=== PATIENT | female | born 1940 | race Caucasian/White ===

== ENCOUNTER → 2023-06-03 14:46 | Outpatient (REF) | payer MEDICARE, SELFPAY | LOC: HWRAD 14:46 | PROVIDERS: ATTENDING PHYSICIAN Physician Assistant; FAMILY PHYSICIAN Internal Medicine | DX: E04.2 Nontoxic multinodular goiter (principal) | CPT/HCPCS: 76536 ==

== ENCOUNTER → 2023-06-23 13:20 | Outpatient (REF) | payer MEDICARE, SELFPAY | LOC: PAVMRI 13:20 | PROVIDERS: ATTENDING PHYSICIAN Psychiatry & Neurology Neurology; FAMILY PHYSICIAN Internal Medicine | DX: E85.4 Organ-limited amyloidosis (principal); I68.0 Cerebral amyloid angiopathy | CPT/HCPCS: 70553; A9575 ==

== ENCOUNTER → 2023-07-08 13:35 | Outpatient (REF) | payer MEDICARE, SELFPAY ==
[2023-07-08 16:04] LABS: % Basophils 0.6 % (0-2); % Eosinophils 0.9 % (0-6); % Immature Granulocytes 2.1 % (0-0.5); % Lymphocytes 9.7 % (20.5-51.1); % Neutrophils 77.7 % (42.2-75.2); Absolute Basophils 0.1 10^3/uL (0-0.2); Absolute Eosinophils 0.1 10^3/uL (0-0.7); Absolute Immature Granulocytes 0.3 10^3/uL (0-0.05); Absolute Lymphocytes 1.1 10^3/uL (1.2-3.4); Absolute Monocytes 1.1 10^3/uL (0.1-0.6); Absolute Neutrophils 9.1 10^3/uL (1.4-6.5); Hematocrit 41.6 % (37.0-47.0); Hemoglobin 12.8 g/dL (12.0-16.0); Mean Corp Hgb Conc. 30.8 g/dL (33.0-37.0); Mean Platelet Volume 9.9 fL (7.4-10.4); Nucleated Red Blood Cells % 0 %; Platelet Count 267 10^3/uL (130-400); Red Blood Cell Count 4.57 10^6/uL (4.20-5.40); Red Cell Dist. Width 17.1 % (11.5-14.5); White Blood Cell Count 11.8 10^3/uL (4.8-10.8)
[2023-07-08 16:25] LABS: ALT (SGPT) 21 U/L (0-35); AST (SGOT) 22 U/L (14-36); Albumin 4.2 g/dl (3.5-5.0); Alkaline Phosphatase 53 U/L (38-126); Blood Urea Nitrogen 30 mg/dl (7-17); Calcium 9.5 mg/dl (8.4-10.2); Carbon Dioxide 34 mmol/L (22-30); Chloride 99 mmol/L (98-107); Glucose 78 mg/dl (70-99); Iron 90 ug/dl (37-170); Magnesium 2.3 mg/dl (1.6-2.3); Potassium 4.4 mmol/L (3.5-5.1); Sodium 136 mmol/L (135-145); Total Bilirubin 0.6 mg/dl (0.2-1.3); eGFR > 60.00
[2023-07-08 17:00] LABS: Ferritin 60.1 ng/ml (11.1-264.0)
[2023-07-11 11:50] LABS: Transferrin 279 mg/dL (200-360)
== END ==
LOC: HWLAB 13:35
PROVIDERS: ATTENDING PHYSICIAN Internal Medicine; FAMILY PHYSICIAN Internal Medicine
DX: Z51.5 Encounter for palliative care (principal); J44.9 Chronic obstructive pulmonary disease, unspecified; E43 Unspecified severe protein-calorie malnutrition
CPT/HCPCS: 36415; 80053; 82728; 83540; 83735; 84466; 85025

== ENCOUNTER → 2023-07-16 12:35 | Outpatient (REF) | payer MEDICARE, SELFPAY | LOC: HWRAD 12:35 | PROVIDERS: ATTENDING PHYSICIAN Internal Medicine; FAMILY PHYSICIAN Internal Medicine | DX: C34.90 Malignant neoplasm of unspecified part of unspecified bronchus or lung (principal) | CPT/HCPCS: 71260; Q9967 ==

== ENCOUNTER 2023-07-26 21:06 | Emergency (ER) | payer MEDICARE, SELFPAY ==
[2023-07-26 21:08] VITALS: BP 145/78; BMI 18.9
--- NOTE | 2023-07-26 21:26 | EDRN ---
Pt says she slipped and fell backwards hitting the back of her head on cement ground around 8584-2091. No loc, n/v, dizziness, visual disturbance. Pt has a posterior headache that has improved. Pt is not on blood thinners. Pt concerned about
internal brain bleeding. Pt came out of room to nurse's station after getting changed into gown - gait steady, no weakness.
[2023-07-26 22:29] VITALS: BP 116/64
--- NOTE | 2023-07-26 22:34 | ED.GENMED ---
History of Present Illness
General
Chief Complaint: Head Injury
Source: patient and family
Exam Limitations: none
Time Seen by Provider: 07/26/23 21:28
Nursing documentation reviewed up to this point in time: agreed with
Travel History
Have you had any contact with someone who has COVID-19?: No
Do you have any symptoms of coronavirus? Fever > 100 degrees, chills, cough, shortness of breath, sore throat, loss of taste or smell, muscle aches, or headache?: No
History of Present Illness
History of Present Illness:
83-year-old female presents with slip and fall. She was getting out of the car and slipped on the concrete striking her head. Denies loss of consciousness. She is not on any blood thinners. Patient states that she just wanted to come in to get
checked out. She has a very mild headache. Denies blurry vision. Denies nausea or vomiting. Patient was able to ambulate at the scene.
Past History
Past History
ED Past Medical History: Valvular disease, Hypothyroidism and Other (Irritable bowel syndrome, rapid heart rate)
ED Past Surgical History: Appendectomy, Tonsilectomy and Other (Bilateral lumpectomy, for benign masses)
Social History
Tobacco: Former smoker
Alcohol: None
Drug: None
Personal:
Living: with family
Employment: Retired
Review of Systems
Review of Systems
Allergies reviewed?: Yes
All Other Systems: ROS reviewed and negative except as documented in HPI and ROS
Constitutional: Reports no symptoms
EENT: Reports no symptoms
Respiratory: Reports no symptoms
Cardiac: Reports no symptoms
ABD/GI: Reports no symptoms
: Reports no symptoms
Musculoskeletal: Reports no symptoms
Skin: Reports no symptoms
Neurological: Reports headache
Endocrine: Reports no symptoms
Hematologic/Lymphatic: Reports no symptoms
Psychiatric: Reports no symptoms
Phy Exam
General Physical Exam
General Presentation: well appearing and no apparent distress
General Skin: warm and dry
General Habitus: normal
General Mental: alert
General Hydration: appears well hydrated
Cardiovascular Exam
Cardiovascular Exam: regular rate/rhythm
Pulmonary Exam
Pulmonary Exam: lungs clear and no respiratory distress
Gastrointestinal Exam
Gastrointestinal Exam: normal bowel sounds and non tender
Neurological Exam
Neurological Exam: alert and oriented x3
Musculoskeletal Exam
Musculoskeletal Exam: full ROM and neck pain
Skin Exam
Skin Exam: normal color and warm/dry
Psychiatric Exam
Psychiatric Exam: normal mood/affect
Course
Orders/Labs/Results
Orders:
Orders
07/26/23 21:10
CT Head W/o Iv Contrast Urgent
Reason For Exam: pain
Cervical Spine wo Contrast CT [CT Cervical Spine W/o Iv Contr] Urgent
Comment:
Reason For Exam: pain
Vital Signs
Initial and Last Documented VS:
Initial Vital Signs
Temp Pulse Resp BP Pulse Ox
98 F 95 16 145/78 99
07/26/23 21:08 07/26/23 21:08 07/26/23 21:08 07/26/23 21:08 07/26/23 21:08
Last Documented Vital Signs
Temp Pulse Resp BP Pulse Ox
98 F 95 14 116/64 95
07/26/23 21:08 07/26/23 22:29 07/26/23 22:29 07/26/23 22:29 07/26/23 22:29
*Radiology
Radiology exam reviewed: radiology read reviewed
*Pulse Oximetry
Patient hypoxic: no
*Critical Care Note
Total Time (30-74mins, 75-104mins- exclusive of procedures): Not Applicable
Update Note
Update Note:
CT head, C-spine
IMPRESSION:
Head:
No acute intracranial findings.
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
contrast-enhanced MRI is recommended to exclude underlying malignancy with associated vasogenic edema.
Mild disproportionate ventricular enlargement, new since 07/30/2021, and which may represent normal pressure hydrocephalus in the appropriate clinical setting.
Additional findings: Senescent changes. Vascular calcifications.
C-spine:
No acute fracture or dislocation.
5 mm dural based calcified lesion within the ventral cervical spine, centered at the C2 level (304: 45), suspicious for a meningioma. Contrast-enhanced MRI is recommended for further characterization.
Asymmetric enlargement of the left thyroid lobe, with nodules. Ultrasound is recommended for further characterization.
Additional findings: DJD. Vascular calcifications.
ED Attending Note
-
Portions of this chart may have been created with voice recognition software.� Occasional wrong word or��sound alike� substitutions may have occurred due to the inherent limitations of voice recognition software.
Discharge Plan
Departure
Patient Disposition: Home (Routine Discharge)
Date of Disposition: 07/26/23
Time of Disposition: 22:37
Patient with high blood pressure during this ER visit?: No
Discharge Problem:
Head injury, Headache
Instructions: Head Injury in Adults (DC), Minor Head Injury (DC)
Prescriptions:
No Action
riboflavin (vitamin B2) 100 mg Tablet
100 mg PO DAILY
prochlorperazine maleate 5 mg tablet
5 mg PO Q8H PRN (Reason: nausea/vomiting)
triamcinolone acetonide 0.1 % Cream
1 applic TOPICAL Q6H PRN (Reason: itch)
omeprazole 20 mg Capsule,Delayed Release(Dr/Ec)
20 mg PO DAILY
magnesium 250 mg Tablet
250 mg PO DAILY
ondansetron 4 mg Tablet,Disintegrating
4 mg PO Q8H PRN (Reason: nausea)
fluticasone propionate 50 mcg/actuation [place],Suspension
1 spray INTRANASAL BID
escitalopram oxalate 10 mg tablet
10 mg PO DAILY
arformoterol 15 mcg/2 mL Solution For Nebulization
2 ml INHALATION R BID
Zyrtec 10 mg Capsule
10 mg PO DAILY
PreserVision AREDS-2 250-90-40-1 mg Capsule
1 tab PO BID
Caltrate 600 plus D 600 mg-20 mcg (800 unit) Tablet,Chewable
1 tab PO DAILY
umeclidinium-vilanterol 62.5-25 mcg/actuation Blister With Device
1 inh INHALATION R DAILY
naloxone 4 mg/actuation [place],Non-Aerosol
4 mg INTRANASAL Q3M PRN (Reason: opioid overdose)
revefenacin 175 mcg/3 mL Solution For Nebulization
175 mcg INHALATION R DAILY
midodrine 5 mg Tablet
10 mg PO TID@0800,1300,1800 Qty: 90 0RF
metronidazole 500 mg Tablet
500 mg PO Q8 Qty: 96 0RF
gabapentin 100 mg Capsule
100 mg PO BID Qty: 60 0RF
ceftriaxone 2 gram Recon Soln
2,000 mg IV Q24H Qty: 0 0RF
metoprolol tartrate 25 mg Tablet
12.5 mg PO BID Qty: 60 0RF
acetaminophen 325 mg Tablet
650 mg PO Q4HPRN PRN (Reason: mild pain/BARNETT/temp> 100.4F) Qty: 0 0RF
ipratropium-albuterol 0.5 mg-3 mg(2.5 mg base)/3 mL Solution For Nebulization
3 ml inhalation R Q4HPRN PRN (Reason: shortness of breath) Qty: 180 0RF
Lactobac/Bifidobac [Visbiome]
1 cap PO DAILY Qty: 30 0RF
albuterol sulfate 2.5 mg /3 mL (0.083 %) Solution For Nebulization
2.5 mg INHALATION R BID Qty: 180 0RF
Rx Instructions:
to be used with 3% saline for sputum clearance
oxycodone 5 mg Tablet
5 mg PO Q4H PRN (Reason: cancer related pain) Qty: 20 0RF
sodium chloride 3 % Solution For Nebulization
4 ml INHALATION R BID Qty: 240 0RF
Referrals:
Jud Franklni-MD Diana [Family Provider] -
Activity Restrictions/Additional Instructions:
It was a pleasure meeting you and taking part in your care. We hope for your continued healing and wellness.
Please read discharge instructions in their entirety. However, they are for general education and may not describe your exact diagnosis at discharge. Information on your ER visit and medical conditions were discussed with you along with appropriate
follow up information...
If indicated, please take your medications as instructed and indicated on discharge paperwork.
Please schedule a follow up appointment as directed. Call to schedule an appointment
Please return to the emergency department with ANY change in, persisting, or worsening of symptoms. If any of your symptoms do not improve, or persist, or become more severe within 6-12 hours, please return to the emergency department for further
care.
Please return to the emergency department if you develop a headache, neck pain/stiffness, fever greater than 100.4F, chest pain, shortness of breath, persistent nausea, vomiting, slurred speech, difficulty walking, numbness/tingling, weakness, signs
of infection or any other symptoms that are worrisome to you.
If you have any questions or concerns please do not hesitate to call the Hospital at or E-mail me directly at [email or web address]
Interventions
Interventions:
*Risk Screen - Suicide Last Done: 07/26/23 21:17
*General Assessment Last Done: 07/26/23 21:17
*Neglect/Abuse Screening Last Done: 07/26/23 21:17
ED- Fall Risk Assessment Last Done: 07/26/23 21:25
*ED COVID-19 Vaccine History Last Done: 07/26/23 21:08
ED- Neurological Assessment Last Done: 07/26/23 21:25
ED-Skin Assessment Last Done: 07/26/23 21:25
Discharge Date and Time
Print Language: ROMANIAN
--- NOTE | 2023-08-04 12:22 | OID.L.PAT ---
Pulmonary Nodule Pat Letter
- -
08/04/23
HA LEYVA
[address]
[place], [place] [address]
Deaedilson BONNER,
A pulmonary nodule was seen on an imaging study done by [facility]iology. This was reviewed by the [facility] Pulmonary Nodule Advisory Board and the following recommendation was made:
Recommendation: follow up with Oncology
If you have any questions, please do not hesitate to contact your primary care physician. If you are in need of a Physician, you can go to [email or web address] and click on 'Find a Provider'. Type 'Family Medicine' in the search.
Oncology Nurse Navigator
[facility]
[phone]
Certified Mail Return Receipt
--- NOTE | 2023-08-04 12:23 | OID.L.REC ---
Pulmonary Nodule Follow Up
- Recommendation
08/04/23
Pulmonary Nodule Review Recommendations
Your patient, HA LEYVA, had a pulmonary nodule seen on an imaging study done 07/26/2023 in the [facility] Emergency Room.
This was reviewed by the [facility] Pulmonary Nodule Advisory Board and the following recommendation was made:
Recommendation: follow up with Oncology
If you have any questions please do not hesitate to call us.
Sincerely,
Oncology Nurse Navigator
[facility]
[phone]
== END 2023-07-26 22:49 | disposition home or self-care (01) ==
LOC: EMR 21:06
PROVIDERS: EMERGENCY PHYSICIAN Student in an Organized Health Care Education/Training Program; FAMILY PHYSICIAN Internal Medicine
DX: S09.90XA Unspecified injury of head, initial encounter (principal); R51.9 Headache, unspecified; W01.0XXA Fall on same level from slipping, tripping and stumbling without subsequent striking against object, initial encounter; I38 Endocarditis, valve unspecified; E03.9 Hypothyroidism, unspecified; K58.9 Irritable bowel syndrome, unspecified; Z87.891 Personal history of nicotine dependence; Z90.49 Acquired absence of other specified parts of digestive tract
CPT/HCPCS: 99284; 70450; 72125

== ENCOUNTER → 2023-08-07 10:58 | Outpatient (REF) | payer MEDICARE, SELFPAY ==
[2023-08-07 12:49] LABS: Blood Urea Nitrogen 35 mg/dl (7-17); Calcium 9.6 mg/dl (8.4-10.2); Carbon Dioxide 37 mmol/L (22-30); Chloride 95 mmol/L (98-107); Glucose 149 mg/dl (70-99); Potassium 3.6 mmol/L (3.5-5.1); Sodium 136 mmol/L (135-145)
== END ==
LOC: HWLAB 10:58
PROVIDERS: ATTENDING PHYSICIAN Psychiatry & Neurology Neurology; FAMILY PHYSICIAN Internal Medicine
DX: E85.4 Organ-limited amyloidosis (principal); I68.0 Cerebral amyloid angiopathy
CPT/HCPCS: 36415; 80048

== ENCOUNTER → 2023-08-29 11:52 | Outpatient (REF) | payer MEDICARE, SELFPAY | LOC: HWRAD 11:52 | DX: J43.2 Centrilobular emphysema (principal); R06.09 Other forms of dyspnea; R09.02 Hypoxemia | CPT/HCPCS: 71046 ==

== ENCOUNTER → 2023-09-05 12:40 | Outpatient (REF) | payer MEDICARE, SELFPAY | LOC: HWRAD 12:40 | DX: R06.09 Other forms of dyspnea (principal) | CPT/HCPCS: 71250 ==

== ENCOUNTER → 2023-09-08 12:41 | Outpatient (REF) | payer MEDICARE, SELFPAY | LOC: PAVMRI 12:41 | PROVIDERS: ATTENDING PHYSICIAN Psychiatry & Neurology Neurology; FAMILY PHYSICIAN Internal Medicine | DX: E85.4 Organ-limited amyloidosis (principal); I68.0 Cerebral amyloid angiopathy | CPT/HCPCS: 70553; A9575 ==

== ENCOUNTER → 2023-09-30 15:15 | Outpatient (REF) | payer MEDICARE, SELFPAY | LOC: RAD 15:15 | PROVIDERS: ATTENDING PHYSICIAN Physician Assistant; FAMILY PHYSICIAN Internal Medicine; OTHER PHYSICIAN Student in an Organized Health Care Education/Training Program | DX: R60.0 Localized edema (principal) | CPT/HCPCS: 93970 ==

== ENCOUNTER → 2023-11-25 12:15 | Outpatient (REF) | payer MEDICARE, SELFPAY | LOC: PAVMRI 12:15 | PROVIDERS: ATTENDING PHYSICIAN Psychiatry & Neurology Neurology; FAMILY PHYSICIAN Internal Medicine | DX: E85.4 Organ-limited amyloidosis (principal); I68.0 Cerebral amyloid angiopathy | CPT/HCPCS: 70553; A9575 ==

== ENCOUNTER → 2023-12-09 12:29 | Outpatient (REF) | payer MEDICARE, SELFPAY ==
[2023-12-09 16:51] LABS: Blood Urea Nitrogen 21 mg/dl (7-17); Calcium 9.8 mg/dl (8.4-10.2); Carbon Dioxide 39 mmol/L (22-30); Chloride 96 mmol/L (98-107); Glucose 99 mg/dl (70-99); Potassium 4.6 mmol/L (3.5-5.1); Sodium 139 mmol/L (135-145); eGFR > 60.00
[2023-12-09 16:53] LABS: NT-proBNP 189 pg/ml
[2023-12-09 17:22] LABS: TSH Reflex To Free T4 1.26 uIU/ml (0.47-4.68)
== END ==
LOC: HWRAD 12:29
PROVIDERS: FAMILY PHYSICIAN Internal Medicine; REFERRING PHYSICIAN Internal Medicine
DX: R10.30 Lower abdominal pain, unspecified (principal); R00.2 Palpitations
CPT/HCPCS: 36415; 74019; 80048; 83880; 84443; 85379

== ENCOUNTER → 2024-02-11 13:50 | Outpatient (REF) | payer MEDICARE, SELFPAY | LOC: HWRAD 13:50 | PROVIDERS: ATTENDING PHYSICIAN Internal Medicine Medical Oncology; FAMILY PHYSICIAN Internal Medicine | DX: C34.00 Malignant neoplasm of unspecified main bronchus (principal) | CPT/HCPCS: 71260; Q9967 ==

== ENCOUNTER → 2024-02-18 13:06 | Outpatient (REF) | payer MEDICARE, SELFPAY ==
[2024-02-18 16:00] LABS: % Basophils 1.3 % (0-2); % Eosinophils 5.2 % (0-6); % Immature Granulocytes 0.2 % (0-0.5); % Lymphocytes 18.6 % (20.5-51.1); % Monocytes 9.2 % (1.7-9.3); % Neutrophils 65.5 % (42.2-75.2); Absolute Basophils 0.1 10^3/uL (0-0.2); Absolute Eosinophils 0.3 10^3/uL (0-0.7); Absolute Monocytes 0.5 10^3/uL (0.1-0.6); Absolute Neutrophils 3.6 10^3/uL (1.4-6.5); Hematocrit 39.1 % (37.0-47.0); Hemoglobin 12.1 g/dL (12.0-16.0); Mean Corp Hgb Conc. 30.9 g/dL (33.0-37.0); Mean Corpuscular Hgb 27.8 pg (27.0-31.0); Mean Corpuscular Volume 89.9 fL (81.0-99.0); Mean Platelet Volume 10.9 fL (7.4-10.4); Nucleated Red Blood Cells % 0 %; Platelet Count 222 10^3/uL (130-400); Red Blood Cell Count 4.35 10^6/uL (4.20-5.40); White Blood Cell Count 5.5 10^3/uL (4.8-10.8)
[2024-02-18 16:16] LABS: ALT (SGPT) 11 U/L (0-35); AST (SGOT) 20 U/L (14-36); Albumin 4.5 g/dl (3.5-5.0); Alkaline Phosphatase 71 U/L (38-126); Blood Urea Nitrogen 22 mg/dl (7-17); Calcium 9.8 mg/dl (8.4-10.2); Carbon Dioxide 37 mmol/L (22-30); Chloride 98 mmol/L (98-107); Glucose 101 mg/dl (70-99); HDL Cholesterol 92 mg/dl; LDL Cholesterol, Calculated 89 mg/dl; Potassium 4.5 mmol/L (3.5-5.1); Sodium 141 mmol/L (135-145); Total Bilirubin 0.3 mg/dl (0.2-1.3); Total Cholesterol 210 mg/dl (50-199); Total Protein 7.2 g/dl (6.3-8.2); Triglyceride 148 mg/dl (10-149); Very Low Density Lipoprotein 29 mg/dl (0-30); eGFR > 60.00
[2024-02-18 16:45] LABS: TSH 0.74 uIU/ml (0.47-4.68)
== END ==
LOC: HWLAB 13:06
PROVIDERS: ATTENDING PHYSICIAN Internal Medicine
DX: R06.02 Shortness of breath (principal); K30 Functional dyspepsia; K59.09 Other constipation; E04.1 Nontoxic single thyroid nodule; Z13.6 Encounter for screening for cardiovascular disorders
CPT/HCPCS: 36415; 80053; 80061; 84443; 85025

== ENCOUNTER → 2024-04-23 09:48 | Outpatient (REF) | payer MEDICARE, SELFPAY | LOC: RST 09:48 | PROVIDERS: ATTENDING PHYSICIAN Student in an Organized Health Care Education/Training Program; FAMILY PHYSICIAN Internal Medicine; REFERRING PHYSICIAN Internal Medicine Critical Care Medicine | DX: R13.10 Dysphagia, unspecified (principal) | CPT/HCPCS: 74230; 92611 ==

== ENCOUNTER → 2024-06-25 11:08 | Outpatient (REF) | payer MEDICARE, SELFPAY | LOC: PAVMRI 11:08 | PROVIDERS: ATTENDING PHYSICIAN Psychiatry & Neurology Neurology; FAMILY PHYSICIAN Internal Medicine | DX: E85.4 Organ-limited amyloidosis (principal); I68.0 Cerebral amyloid angiopathy | CPT/HCPCS: 70551 ==

== ENCOUNTER → 2024-07-22 12:18 | Outpatient (REF) | payer MEDICARE, SELFPAY ==
[2024-07-22 16:59] LABS: Blood Urea Nitrogen 23 mg/dl (7-17); Calcium 9.2 mg/dl (8.4-10.2); Carbon Dioxide 39 mmol/L (22-30); Chloride 93 mmol/L (98-107); Glucose 146 mg/dl (70-99); Potassium 4.1 mmol/L (3.5-5.1); Sodium 139 mmol/L (135-145); eGFR > 60.00
== END ==
LOC: HWLAB 12:18
PROVIDERS: ATTENDING PHYSICIAN Internal Medicine Medical Oncology; FAMILY PHYSICIAN Internal Medicine
DX: C34.11 Malignant neoplasm of upper lobe, right bronchus or lung (principal)
CPT/HCPCS: 36415; 80048

== ENCOUNTER → 2024-07-29 14:12 | Outpatient (REF) | payer MEDICARE, SELFPAY | LOC: RAD 14:12 | PROVIDERS: ATTENDING PHYSICIAN Internal Medicine Medical Oncology; FAMILY PHYSICIAN Internal Medicine | DX: C34.11 Malignant neoplasm of upper lobe, right bronchus or lung (principal) | CPT/HCPCS: 71260; Q9967 ==

== ENCOUNTER → 2024-11-14 11:11 | Outpatient (REF) | payer MEDICARE, SELFPAY | LOC: PAVMRI 11:11 | PROVIDERS: ATTENDING PHYSICIAN Psychiatry & Neurology Neurology; FAMILY PHYSICIAN Internal Medicine | DX: G45.9 Transient cerebral ischemic attack, unspecified (principal) | CPT/HCPCS: 70551 ==

== ENCOUNTER → 2025-02-21 13:30 | Outpatient (REF) | payer MEDICARE, SELFPAY | LOC: RAD 13:30 | PROVIDERS: ATTENDING PHYSICIAN Internal Medicine Medical Oncology; FAMILY PHYSICIAN Internal Medicine; REFERRING PHYSICIAN Psychiatry & Neurology Neurology | DX: C34.11 Malignant neoplasm of upper lobe, right bronchus or lung (principal) | CPT/HCPCS: 71260; Q9967 ==